=== PATIENT | male | born 1995 | race Two or more races ===

== ENCOUNTER 2016-09-16 00:39 | Emergency (ER) | payer MEDICAID ==
--- NOTE | 2016-09-16 00:45 | EDPHY ---
H & P Time Seen by Provider: 09/16/16 00:42 HPI/ROS: CHIEF COMPLAINT: Alcohol intoxication HISTORY OF PRESENT ILLNESS: 21-year-old male presents to the emergency department with friend by private vehicle with acute alcohol intoxication. The friend states that he was at a [employer] and drank at least 15 shots of vodka over an hour so. Became disoriented and brought to the emergency department for evaluation. No reported trauma. No vomiting. No other substances refused. Currently the patient has no complaints. He denies chest pain, difficulty breathing. REVIEW OF SYSTEMS: Constitutional: No fever, no chills. Eyes: No double or blurry vision. ENT: No sore throat. Respiratory: No cough, no shortness of breath. Cardiac: No chest pain. Gastrointestinal: No abdominal pain, vomiting or diarrhea. Genitourinary: No dysuria. Musculoskeletal: No neck or back pain. Skin: No rashes. Neurological: No headache. (BaileyMary mckeon) Past Medical/Surgical History: Negative (Mary Foster) Social History: [employer] student (Mary Foster) Physical Exam: General Appearance: Alert, no distress. Tearful. Spitting. Eyes: Pupils equal and round. Extraocular motions are all intact. ENT: Mouth: Mucous membranes moist. Respiratory: No wheezing, rhonchi, or rales, lungs are clear to auscultation. Cardiovascular: Regular rate and rhythm. Gastrointestinal: Abdomen is soft and nontender, no masses, no rebound or guarding, bowel sounds normal. Neurological: Uncooperative, cannot determine. Skin: Warm and dry, no rashes. Musculoskeletal: Nontender to palpate along the cervical, thoracic or lumbar spine. Neck is supple. Extremities: Full range of motion and no peripheral edema. Psychiatric: Mildly agitated (Mary Foster) Constitutional: Initial Vital Signs Temperature (C) 36.6 C 09/16/16 00:42 Heart Rate 99 09/16/16 00:42 Respiratory Rate 20 09/16/16 00:42 Blood Pressure 123/83 H 09/16/16 00:42 O2 Sat (%) 98 09/16/16 00:42 O2 Delivery Mode Room Air Medical Decision Making ED Course/Re-evaluation: 21-year-old male presents to the emergency department with altered mental status and acute alcohol intoxication. Patient had no visible signs of trauma. His vital signs are stable. He is not vomiting. He was observed in the emergency department and when he is clinically sober and able to ambulate unassisted and without complaints, he will be discharged either with a sober democrat or to the addiction recovery Center. (Mary Foster) 3:20 a.m. the patient is ambulatory. Discharge him to the Addiction recovery [facility]. (Castro Mora) Differential Diagnosis: Altered mental status including but not limited to hypoglycemia, infectious process, electrolyte abnormality, head injury and intoxicants. (Mary Foster) Departure - Departure Disposition: Home, Routine, Self-Care Clinical Impression: Alcoholic intoxication Qualifiers: Complication of substance-induced condition: uncomplicated Qualified Code(s): F10.120 - Alcohol abuse with intoxication, uncomplicated Instructions: Alcohol Intoxication (ED) Additional Instructions: You should not drink alcohol in excess. Referrals: [facility] [Outside] - As per Instructions
[2016-09-16 04:41] VITALS: RESP 16
[2016-09-16 04:47] VITALS: BP 142/74; PULSE 68; TEMP 97.9; O2SAT 94
== END 2016-09-16 04:46 | disposition home or self-care (01) ==
DX: F10.120 Alcohol abuse with intoxication, uncomplicated (principal)